=== PATIENT | female | born 1950 | race Caucasian/White ===

== ENCOUNTER → 2022-11-23 10:31 | Outpatient (CLI) | payer MEDICARE, OTHER, SELFPAY ==
[2022-11-23 19:54] LABS: Add Manual Diff / Slide Review NO; Basophils Absolute Auto 100 /uL (0-100); Basophils Percent Auto 1.5 % (0-2); Eosinophils Absolute Auto 100 /uL (0-450); Eosinophils Percent Auto 2.8 % (2-4); Hematocrit 28.9 % (36-46); Hemoglobin 10.1 g/dL (12.0-16.0); Lymphocytes Absolute Auto 1400 /uL (1100-4500); Lymphocytes Percent Auto 27.7 % (25-40); Mean Corpuscular HGB Conc 34.8 % (30-36); Mean Corpuscular Hemoglobin 32.6 PG (26-34); Mean Corpuscular Volume 93.4 fL (80-100); Monocytes Absolute Auto 300 /uL (0-900); Monocytes Percent Auto 6.7 % (3-14); Neutrophils Absolute Auto 3000 /uL (1500-7000); Neutrophils Percent Auto 61.3 % (50-75); Platelet Count 225 X10^3/uL (150-400); Red Blood Cell Count 3.09 X10^6/uL (4.0-5.2); Red Cell Distribution Width 13.2 % (11.6-14.8)
[2022-11-23 19:56] LABS: Reticulocyte Count, Percent 0.5 % (1.1-2.6)
[2022-11-23 20:07] LABS: HEMOLYSIS < 15 (0-50); Iron 84 ug/dL (37-170)
[2022-11-23 20:09] LABS: Alanine Aminotransferase 21 IU/L (<35); Albumin Globulin Ratio 1.9 (1.0-2.8); Alkaline Phosphatase 109 U/L (38-126); Aspartate Aminotransferase 27 IU/L (14-36); BUN Creatinine Ratio 9.3 (6-22); Bilirubin Total 0.6 mg/dL (0.2-1.3); Blood Urea Nitrogen 10 mg/dL (7-17); Calcium 9.3 mg/dL (8.4-10.2); Carbon Dioxide 25 mmol/L (22-32); Chloride 92 mmol/L (98-107); Estimated Glomerular Filt Rate 55 mL/min (>60); Globulin 2.1 g/dL (1.7-4.1); Glucose 92 mg/dL (80-110); HEMOLYSIS < 15 (0-50); Potassium 3.8 mmol/L (3.4-5.1); Sodium 125 mmol/L (137-145); Total Protein 6.1 g/dL (6.3-8.2)
[2022-11-23 20:19] LABS: Percent Iron Saturation 31 % (15-50); Total Iron Binding Capacity 270 ug/dL (265-497); Transferrin 181 mg/dL (206-381)
[2022-11-23 20:43] LABS: Cortisol AM (Before 10AM) 9.67 ug/dL (4.46-22.7)
[2022-11-23 20:47] LABS: Ferritin 87 ng/mL (11-264)
[2022-11-23 21:19] LABS: Folate > 20.0 ng/mL (2.76-20.0); Vitamin B12 Reflex MMA if <400 920 pg/mL (239-931)
[2022-11-26 12:09] LABS: Albumin 3.7 g/dL (2.9-4.4); Alpha-1-Globulin 0.2 g/dL (0.0-0.4); Alpha-2-Globulin 0.6 g/dL (0.4-1.0); Gamma Globulin 0.7 g/dL (0.4-1.8); Globulin Total 2.3 g/dL (2.2-3.9); Immunoglobulin A, Serum 67 mg/dL (64-422); Immunoglobulin G,Serum 686 mg/dL (586-1602); Immunoglobulin M, Serum 48 mg/dL (26-217)
[2022-11-26 18:49] LABS: Free Kappa Lt Chains, Serum 23.3 mg/L (3.3-19.4); Free Lambda Lt Chains,Serum 18.6 mg/L (5.7-26.3)
== END ==
PROVIDERS: PCP Family Medicine; Visit Provider Family Medicine
DX: E87.1 Hypo-osmolality and hyponatremia; D64.9 Anemia, unspecified; I10 Essential (primary) hypertension; R94.4 Abnormal results of kidney function studies; G62.9 Polyneuropathy, unspecified
CPT/HCPCS: 80053; 82533; 82607; 82728; 82746; 82784; 83540; 83550; 83883; 84155; 84165; 85025; 85045; 86334

== ENCOUNTER → 2022-12-15 13:24 | Outpatient (CLI) | payer MEDICARE, OTHER, SELFPAY ==
[2022-12-15 20:30] LABS: BUN Creatinine Ratio 18.2 (6-22); Blood Urea Nitrogen 22 mg/dL (7-17); Calcium 8.6 mg/dL (8.4-10.2); Carbon Dioxide 25 mmol/L (22-32); Chloride 96 mmol/L (98-107); Cholesterol 213 mg/dL (140-199); Estimated Glomerular Filt Rate 48 mL/min (>60); Glucose 88 mg/dL (80-110); HEMOLYSIS 21 (0-50); Potassium 4.1 mmol/L (3.4-5.1); Sodium 126 mmol/L (137-145); Triglycerides 100 mg/dL (35-150)
[2022-12-15 20:31] LABS: Add Manual Diff / Slide Review NO; Basophils Absolute Auto 100 /uL (0-100); Basophils Percent Auto 2.3 % (0-2); Eosinophils Absolute Auto 100 /uL (0-450); Eosinophils Percent Auto 2.1 % (2-4); Hematocrit 29.4 % (36-46); Hemoglobin 10.3 g/dL (12.0-16.0); Lymphocytes Absolute Auto 1700 /uL (1100-4500); Lymphocytes Percent Auto 31.2 % (25-40); Mean Corpuscular HGB Conc 35.1 % (30-36); Mean Corpuscular Hemoglobin 32.9 PG (26-34); Mean Corpuscular Volume 93.8 fL (80-100); Monocytes Absolute Auto 400 /uL (0-900); Monocytes Percent Auto 8.1 % (3-14); Neutrophils Absolute Auto 3100 /uL (1500-7000); Neutrophils Percent Auto 56.3 % (50-75); Platelet Count 247 X10^3/uL (150-400); Red Blood Cell Count 3.13 X10^6/uL (4.0-5.2); White Blood Cell Count 5.4 X10^3/uL (4.5-11.0)
[2022-12-15 20:58] LABS: TSH w/ Reflex to FT4 1.59 uIU/mL (0.47-4.68)
[2022-12-15 21:04] LABS: HDL Cholesterol 115 mg/dL (40-60); LDL Cholesterol Calculated 78 mg/dL (<100)
== END ==
PROVIDERS: PCP Family Medicine; Visit Provider Family Medicine
DX: D64.9 Anemia, unspecified (principal); I10 Essential (primary) hypertension; E87.1 Hypo-osmolality and hyponatremia; R94.4 Abnormal results of kidney function studies; Z01.812 Encounter for preprocedural laboratory examination
CPT/HCPCS: 80048; 80061; 84443; 85025

== ENCOUNTER → 2023-05-22 08:03 | Outpatient (CLI) | payer MEDICARE, OTHER, SELFPAY | PROVIDERS: PCP Family Medicine; Visit Provider Student in an Organized Health Care Education/Training Program | DX: R30.0 Dysuria (principal) | CPT/HCPCS: 87086; 87147 ==

== ENCOUNTER → 2023-06-21 14:31 | Outpatient (CLI) | payer MEDICARE, OTHER, SELFPAY | PROVIDERS: PCP Family Medicine; Visit Provider Physician Assistant | DX: N39.0 Urinary tract infection, site not specified (principal) | CPT/HCPCS: 87086 ==

== ENCOUNTER → 2024-02-05 16:53 | Outpatient (CLI) | payer MEDICARE, OTHER, SELFPAY | PROVIDERS: PCP Family Medicine; Visit Provider Nurse Practitioner Family | DX: R30.0 Dysuria (principal) | CPT/HCPCS: 87086 ==

== ENCOUNTER → 2024-02-08 12:28 | Outpatient (CLI) | payer MEDICARE, OTHER, SELFPAY ==
[2024-02-08 19:33] LABS: HEMOLYSIS < 15 (0-50)
[2024-02-08 19:38] LABS: Iron 71 ug/dL (37-170)
[2024-02-08 19:40] LABS: Hematocrit 30.3 % (36-46); Hemoglobin 10.4 g/dL (12.0-16.0); Mean Corpuscular HGB Conc 34.2 % (30-36); Mean Corpuscular Volume 93.5 fL (80-100); Platelet Count 240 X10^3/uL (150-400); Red Blood Cell Count 3.24 X10^6/uL (4.0-5.2); Red Cell Distribution Width 13.8 % (11.6-14.8); White Blood Cell Count 5.1 X10^3/uL (4.5-11.0)
[2024-02-08 19:47] LABS: Alanine Aminotransferase 15 IU/L (<35); Albumin Globulin Ratio 1.5 (1.0-2.8); Alkaline Phosphatase 227 U/L (38-126); Aspartate Aminotransferase 26 IU/L (14-36); BUN Creatinine Ratio 12.8 (6-22); Bilirubin Total 0.6 mg/dL (0.2-1.3); Blood Urea Nitrogen 14 mg/dL (7-17); Calcium 9.5 mg/dL (8.4-10.2); Carbon Dioxide 23 mmol/L (22-32); Chloride 99 mmol/L (98-107); Estimated Glomerular Filt Rate 54 mL/min (>60); Globulin 2.6 g/dL (1.7-4.1); Glucose 107 mg/dL (80-110); HEMOLYSIS < 15 (0-50); Potassium 4.1 mmol/L (3.4-5.1); Sodium 131 mmol/L (137-145); Total Protein 6.6 g/dL (6.3-8.2)
[2024-02-08 19:53] LABS: Percent Iron Saturation 26 % (15-50); Total Iron Binding Capacity 269 ug/dL (265-497)
[2024-02-08 19:54] LABS: Transferrin 223 mg/dL (206-381)
[2024-02-08 19:56] LABS: Erythrocyte Sedimentation Rate 16 MM/HR (0-20)
[2024-02-08 20:01] LABS: Neutrophils Absolute Manual 3621 /uL (3000-5900); RBC Morphology Normal Morphology; Total Cells Counted 100
[2024-02-08 20:20] LABS: Ferritin 85 ng/mL (11-264)
[2024-02-09 02:28] LABS: C-Reactive Protein Quant < 0.5 mg/dL (<1.0)
[2024-02-09 03:31] LABS: Folate > 20.0 ng/mL (2.76-20.0); Vitamin B12 646 pg/mL (239-931)
== END ==
PROVIDERS: PCP Family Medicine; Visit Provider Family Medicine
DX: R30.0 Dysuria (principal); D64.9 Anemia, unspecified; R07.9 Chest pain, unspecified; R06.00 Dyspnea, unspecified; E87.1 Hypo-osmolality and hyponatremia; I10 Essential (primary) hypertension; R05.3 Chronic cough
CPT/HCPCS: 80053; 82607; 82728; 82746; 83540; 83550; 83883; 84155; 84165; 85025; 85651; 86140; 86480; 87086

== ENCOUNTER → 2024-03-29 12:58 | Outpatient (CLI) | payer MEDICARE, OTHER, SELFPAY | PROVIDERS: PCP Family Medicine; Visit Provider Family Medicine | DX: D64.9 Anemia, unspecified (principal); E87.1 Hypo-osmolality and hyponatremia; R07.9 Chest pain, unspecified; R74.8 Abnormal levels of other serum enzymes; R06.00 Dyspnea, unspecified; Z11.1 Encounter for screening for respiratory tuberculosis | CPT/HCPCS: 82533; 86480 ==

== ENCOUNTER → 2024-04-17 11:40 | Outpatient (CLI) | payer MEDICARE, OTHER, SELFPAY | PROVIDERS: PCP Family Medicine; Referring Provider Family Medicine; Visit Provider Family Medicine | DX: R07.9 Chest pain, unspecified (principal); R06.09 Other forms of dyspnea | CPT/HCPCS: 36415; 86480 ==

== ENCOUNTER → 2025-02-23 11:38 | Outpatient (CLI) | payer MEDICARE, OTHER, SELFPAY ==
--- NOTE | 2025-02-23 11:41 | DI.RAD.S_ITS ---
PROCEDURE: XR LUMBAR SPINE MIN 4V INDICATIONS: sciatica, listhesis TECHNIQUE: 5 views of the lumbar spine acquired, including flexion and extension views. COMPARISON: None. FINDINGS: Bones: Osseous demineralization. Grade 1 anterolisthesis at L5-S1. Vertebral body heights maintained. Exaggerated lumbar lordosis. Severe facet arthropathy at L5-S1. Soft tissues: Overlying bowel gas pattern is normal. No suspicious soft tissue calcifications. Flexion/extension: No intersegmental hypermobility. Decreased range of motion. IMPRESSION: L5-S1 spondylolisthesis without intersegmental hypermobility. Dictated by: Deny Euceda M.D. on 02/23/2025 at 14:35 Approved by: Deny Euceda M.D. on 02/23/2025 at 14:36
== END ==
PROVIDERS: PCP Student in an Organized Health Care Education/Training Program; Referring Provider Physical Medicine & Rehabilitation; Visit Provider Physical Medicine & Rehabilitation
DX: M47.27 Other spondylosis with radiculopathy, lumbosacral region (principal); M43.16 Spondylolisthesis, lumbar region; M43.17 Spondylolisthesis, lumbosacral region
CPT/HCPCS: 72110

== ENCOUNTER 2025-03-08 10:46 | Outpatient (CLI) | payer MEDICARE, OTHER, SELFPAY ==
[2025-03-08 11:09] VITALS: BP 150/73; PULSE 72; RESP 15; TEMP 36.3; O2SAT 97
[2025-03-08 11:28] VITALS: BP 186/88; PULSE 73; RESP 16; O2SAT 98
[2025-03-08] MEDS: LIDOCAINE 1% (PF) 5 ML 10 ML INJ (11:32)
[2025-03-08 11:33] VITALS: BP 179/82; PULSE 67; RESP 16; O2SAT 98
[2025-03-08 11:38] VITALS: BP 172/84; PULSE 69; RESP 16; O2SAT 98
[2025-03-08 11:50] VITALS: BP 186/86; PULSE 70; RESP 17; O2SAT 96
--- NOTE | 2025-03-08 12:40 | PM.PROC.IR.1 ---
Date/Time/Diagnoses Date of procedure: 03/08/25 Time of procedure: 11:00 Pre-procedure diagnosis: Lumbosacral radiculopathy Post-procedure diagnosis: same Procedure Notes Procedure: Interlaminar epidural steroid injection L5-S1 Indications: Lumbosacral radiculopathy Physician: Adama Joel Total sedation minutes: 0 Complications: none Procedure in detail & Post-procedure care: Patient is here for the planned procedure today as noted. No significant change since the last office visit. For additional clinical scenario please see those office notes. Her daughter Shan is present with her in the pre/postop area. Focused exam: Vital signs reviewed as charted on intake. Gen: Well developed. No acute distress. Thin. CV: RRR, no M/R/G Chest: Non-labored breathing, CTAB. Psych: Alert and well-oriented. Mood/Affect: normal. Patient suitable for the planned procedure today: Yes === The following procedure was performed in the office today: Lumbar Epidural Steroid Injection with fluoroscopic guidance - Interlaminar approach (41653) Levels Treated: [L5-S1] Approach: interlaminar Soft tissue: [1% lidocaine 2 mL] Test dose: [1% lidocaine 1 mL] Injectate: 1 mL of Depo-Medrol (40mg/mL) in 1 mL 1% lidocaine and 1 mL normal saline Fluoroscopy Agent: Isovue 300-M 1.5 mL Notes: Right paramedian approach. 3.5 in 20 gauge Touhy needle utilized and adequate. Preprocedure pain 7/10, postprocedure pain 9/10. Procedure: After discussing the risks, benefits, and alternatives to the procedure, the patient expressed understanding and wished to proceed. The risks include but are not limited to infection, allergic reaction, nerve damage, stroke, paralysis, epidural hematoma, syncope, headache, respiratory or cardiac arrest, spinal cord injury, and scar formation. Informed consent was obtained and all patient questions were answered. The patient was brought to the procedure suite and placed in the prone position. A pre-procedural pause was conducted to verify: correct patient identity, procedure to be performed and as applicable, correct side and site, correct patient position, and any special requirements. Using a paramedian approach from the side noted above, the region overlying the target was localized under fluoroscopic visualization and the soft tissues overlying this structure were infiltrated with the anesthetic listed above. With fluoroscopic guidance, a #20 gauge Tuohy needle (unless otherwise noted) was inserted into the epidural space using a paramedian approach. The epidural space was localized utilizing intermittent multiplanar fluoroscopic guidance and loss of resistance technique. After negative aspiration, the contrast noted above was injected into the epidural space and the flow of contrast was observed, confirming epidural spread without evidence of intravascular or intrathecal spread. Multi-planar radiographs were obtained for documentation purposes. A test dose of lidocaine was injected into the above noted epidural space, and the patient was observed for 30-60 seconds. No sensory deficits were reported and normal lower extremity motor function was noted. Subsequently, the injectate as noted above was administered into the level noted above. The patient tolerated the procedure well and was discharged after an appropriate period of observation. If there are any complications, the patient was instructed to call us. The patient is to follow-up with the requesting provider in 2-3 weeks. This note was compiled using voice recognition software and therefore may contain typos. Please contact the author with any questions or concerns.
== END 2025-03-08 11:59 | disposition home or self-care (01) ==
LOC: RAD 10:47
PROVIDERS: PCP Student in an Organized Health Care Education/Training Program; Referring Provider Physical Medicine & Rehabilitation; Visit Provider Physical Medicine & Rehabilitation
DX: M54.17 Radiculopathy, lumbosacral region (principal)
CPT/HCPCS: 62323; J1010